=== PATIENT | male | born 1960 | race Caucasian/White ===

== ENCOUNTER 2017-10-31 07:42 | Outpatient (CLI) | payer BC ==
--- NOTE | 2017-10-31 09:40 | MRI ---
NONCONTRAST MRI LUMBAR SPINE: 10/31/2017 HISTORY: Low back pain with pain in the left lower extremity for several years. Lumbar radiculopathy. FINDINGS: Retroperitoneal structures demonstrate a normal MRI appearance. The conus medullaris is normal in appearance and terminates at the level of the L1 vertebral body. There is mild nonspecific heterogeneity of the bone marrow with mild endplate degenerative changes se en in the lower lumbar spine. L1-L2: There is a mild broad-based disk osteophyte complex, resulting in mild effacement of the vent ral aspect of the thecal sac. The neural foramina are patent. L2-L3: There is a mild broad-based disk osteophyte complex and mild facet degenerative changes. The re is mild narrowing of the central spinal canal. There is minimal narrowing of each neural foramen. L3-L4: There is a mild broad-based disk osteophyte complex with mild facet degenerative changes pres ent. There is minimal flattening at the anterior aspect of the thecal sac, as well as minimal narrow ing of each neural foramen. L4-L5: There is a mild broad-based disk osteophyte complex and mild facet degenerative change presen t. There is only slight effacement of the ventral aspect of the thecal sac with resultant mild bilat eral neural foraminal narrowing. L5-S1: There is minimal disk osteophyte complex. There is slight mass effect on the anterior centra l aspect of the thecal sac without significant narrowing of the central spinal canal. The neural for diana are patent. IMPRESSION: Mild degenerative changes in the lumbar spine. POS: DEREK
--- NOTE | 2017-10-31 13:32 | RAD ---
LEFT HIP TWO VIEWS: 10/31/2017 HISTORY: Unspecified left hip pain. COMPARISON: None available. FINDINGS: There is minimal left hip osteoarthritis. There is suggestion of periosteal reaction and slight irre gularity involving the left superior pubic ramus. No displaced fracture or dislocation is seen invol ving the left hip. IMPRESSION: Findings suggestive of healing fracture involving the left superior pubic ramus. MRI is suggested for further evaluation. POS: DEREK
== END 2017-10-31 07:43 | disposition home or self-care (01) ==
LOC: TBSIIMAG 07:42
PROVIDERS: ATTEND Neurological Surgery
DX: M47.26 Other spondylosis with radiculopathy, lumbar region (principal); M25.552 Pain in left hip
CPT/HCPCS: 72148

== ENCOUNTER 2017-11-07 09:05 | Outpatient (CLI) | payer BC ==
--- NOTE | 2017-11-07 10:51 | CT ---
CT LUMBAR SPINE WITHOUT CONTRAST: HISTORY: Low back pain. COMPARISON: None. CORRELATION: MRI lumbar spine from 10/31/2017. TECHNIQUE: A CT lumbar spine is performed without contrast administration. Reformatted images are submitted for interpretation. FINDINGS: Symmetric attenuation of the psoas muscles. Retroperitoneal structures are unremarkable. There is a therosclerosis of a nonaneurysmal aorta. The visualized solid organs are unremarkable. Lumbar spine vertebral body height is maintained. There is no fracture. No spondylolisthesis or spo ndylolysis. Sclerosis along the inferior aspect of L3 is likely due to degenerative change. Limited evaluation of the contents of the central spinal canal and neural foramina. Please refer to recent MRI for further details. T11-T12/T12-L1: No significant central canal stenosis or foraminal narrowing. L1-L2: No significant central canal stenosis. The neural foramina are patent. L2-L3: Generalized disk bulge, ligamentum flavum thickening, and facet hypertrophy result in mild ce ntral canal stenosis. Bilaterally, the neural foramina are patent. L3-L4: Generalized disk bulge without significant central canal stenosis. The neural foramina are p atent. L4-L5: Generalized disk bulge without significant central canal stenosis. Mild bilateral foraminal narrowing. L5-S1: No high-grade central canal stenosis. Bilaterally, the neural foramina are patent. IMPRESSION: No high-grade central canal stenosis or high-grade foraminal narrowing. POS: GARRY
== END 2017-11-07 09:06 | disposition home or self-care (01) ==
LOC: TBSIIMAG 09:05
PROVIDERS: ATTEND Neurological Surgery
DX: M54.5 Low back pain (principal)
CPT/HCPCS: 72131